=== PATIENT | male | born 1960 | race Caucasian/White ===

== ENCOUNTER 2020-06-11 13:57 | Outpatient (CLI) | payer BC, SELFPAY ==
--- NOTE | ~2020-06-11 | XR_ITS ---
EXAMINATION: XR hip RT min 2V DATE: 06/11/2020 14:13 INDICATION: Right hip pain. TECHNIQUE: 3 views of right hip were obtained. COMPARISON: None. FINDINGS: Bone alignment is normal. No fracture. There is moderate right hip osteoarthritis. IMPRESSION: 1. Moderate right hip osteoarthritis. Reviewed, dictated and finalized at location A. CUTTER
--- NOTE | ~2020-06-11 | XR_ITS ---
XR lumbar spine 2-3V 06/11/2020 14:13 Indication: Low back pain Procedure: 3 views lumbar spine Comparison: No prior studies for comparison. Findings: Vertebral body heights are maintained. No fracture or traumatic malalignment. No evidence f or spondylolysis or spondylolisthesis. There is moderate facet hypertrophy at L4-5 and L5-S1. There i s atherosclerosis. Impression: 1: Mild-moderate facet hypertrophy at L4-5 and L5-S1. Reviewed, dictated and finalized at location A. KEEPING ASSISTANT Impression: 1: Mild-moderate facet hypertrophy at L4-5 and L5-S1.
--- NOTE | ~2020-06-11 | XR_ITS ---
EXAMINATION: XR shoulder RT min 2V DATE: 06/11/2020 14:13 INDICATION: Right shoulder pain. TECHNIQUE: 4 views of right shoulder were obtained. COMPARISON: None. FINDINGS: Bone alignment is normal. No fracture. There is mild osteoarthritis of glenohumeral joint a nd acromioclavicular joint. IMPRESSION: 1. Mild polyarticular osteoarthritis. Reviewed, dictated and finalized at location A. HERMAL OPERATIONS ENGINEER
[2020-06-11 15:04] LABS: Basophils Percent Auto 0.6 % (0.2-1.2); Eosinophils Absolute Auto 0.1 K/mm3 (0-0.3); Eosinophils Percent Auto 1.7 % (0-4.4); Hemoglobin 13.1 g/dL (14.0-18.0); Immature Granulocyte Absolute 0.02 K/mm3 (0.00-0.031); Immature Granulocyte Percent A 0.6 % (0-0.5); Lymphocytes Absolute Auto 0.72 K/mm3 (0.9-3.2); Mean Corpuscular HGB Conc 35.4 g/dl (32-36); Mean Corpuscular Hemoglobin 33.3 pg (26-34); Mean Corpuscular Volume 94.1 fl (80-100); Mean Platelet Volume 9.5 fl (7.4-10.4); Monocytes Absolute Auto 0.3 K/mm3 (0.1-0.6); Monocytes Percent Auto 9.3 % (2.6-8.5); Neutrophils Absolute Auto 2.3 K/mm3 (1.3-6.7); Neutrophils Percent Auto 66.8 % (45.5-73.1); Platelet Count Result 137 k/mm3 (150-375); Red Blood Count 3.93 M/mm3 (4.6-6.20); Red Cell Distribution Width 12.5 % (11.5-14.5); White Blood Count 3.4 K/mm3 (4.5-10.0)
== END 2020-06-11 13:58 | disposition home or self-care (01) ==
PROVIDERS: PCP Family Medicine; Visit Provider Nurse Practitioner Family
DX: C85.80 Other specified types of non-Hodgkin lymphoma, unspecified site (principal); M54.5 Low back pain; M16.11 Unilateral primary osteoarthritis, right hip; M19.011 Primary osteoarthritis, right shoulder
CPT/HCPCS: 36415; 72100; 73030; 73502; 85025

== ENCOUNTER → 2020-09-04 12:11 | Outpatient (CLI) | payer BC, SELFPAY ==
--- NOTE | ~2020-09-04 | MR_ITS ---
EXAMINATION: MR cervical spine wo con EXAM DATE: 09/04/2020 12:59 INDICATION: Neck pain, right shoulder and arm pain. Cervical radiculopathy. TECHNIQUE: Multi-sequential, multiplanar MR images of the cervical spine were obtained without contra st. Axial T2, axial T2 MERGE sequence. Sagittal T1, T2, T2 fat saturation images also obtained. Th ere is no prior study for comparison. FINDINGS: There is moderate loss of the C5-6 disc height, mild disc disease at C4-5 and C6-7. The ve rtebral bodies are aligned in the AP dimension. The spinal cord signal intensity and intrinsic morpho logy is normal. Cervicomedullary junction is normal in appearance. There are no suspicious marrow s ignal abnormalities. Paraspinal soft tissue is unremarkable. Level by level evaluation: C2-C3: Disc does not extend beyond the endplate margin. Uncovertebral joint arthropathy: None. Facet joint arthropathy: Mild bilateral. Neural foraminal stenosis: No stenosis. Central canal stenosis: No stenosis. C3-C4: Disc does not extend beyond the endplate margin. Uncovertebral joint arthropathy: Mild bilateral. Facet joint arthropathy: Moderate left, mild to moderate right. Neural foraminal stenosis: Mild to moderate right, mild left. Central canal stenosis: No stenosis. C4-C5: There is a mild diffuse disc bulge. Uncovertebral joint arthropathy: Mild bilateral. Facet joint arthropathy: Moderate right, mild left. Neural foraminal stenosis: Mild right. Central canal stenosis: Minimal. C5-C6: There is a mild diffuse disc bulge. Uncovertebral joint arthropathy: Moderate right, mild left. Facet joint arthropathy: Mild to moderate bilateral. Neural foraminal stenosis: Severe right, mild to moderate left. Central canal stenosis: Mild. C6-C7: There is a mild diffuse disc bulge. Uncovertebral joint arthropathy: Mild to moderate bilateral. Facet joint arthropathy: Mild bilateral. Neural foraminal stenosis: No stenosis. Central canal stenosis: No stenosis. C7-T1: Disc does not extend beyond the endplate margin. Uncovertebral joint arthropathy: Mild right. Facet joint arthropathy: Mild to moderate right, mild left. Neural foraminal stenosis: Mild right. Central canal stenosis: No stenosis. IMPRESSION: 1. C5-6 severe right neural foraminal stenosis. 2. Otherwise overall mild to moderate mid cervical spondylosis. Reviewed, dictated and finalized at location B. OPERATOR
== END ==
PROVIDERS: PCP Family Medicine; Visit Provider Nurse Practitioner Adult Health
DX: M47.22 Other spondylosis with radiculopathy, cervical region (principal)
CPT/HCPCS: 72141

== ENCOUNTER 2020-11-08 13:36 | Outpatient (CLI) | payer BC, SELFPAY ==
--- NOTE | 2020-11-08 13:52 | ECHO_ITS ---
Patient Info Name: Wild Breaux Age: 60 years : 1960 Gender: Male Ht: 74 in Wt: 236 lbs BSA: 2.39 m2 HR: 60 bpm BP: 136 / 82 mmHg Technical Quality: Good Exam Date: 11/08/2020 2:08 PM Exam Location: [facility] Pulmonary Patient Status: Outpatient Admit Date: 11/08/2020 Staff Ordering Physician: Israel Shahid DO Centrifugal Supervisor: Caitlyn Rossi RCS Attending Provider: Israel Shahid DO Exam Type: CA echo doppler color flow Study Info Indications - chest pain Complete two-dimensional, color flow and Doppler transthoracic echocardiogram is performed. Summary 1. Complete two-dimensional, color flow and Doppler transthoracic echocardiogram is performed. 2. Left ventricular chamber dimension is normal. 3. Left ventricular systolic function is normal, estimated at 55-60%. 4. There is mildly increased left ventricular wall thickness. 5. The left ventricular diastolic function is grade I diastolic dysfunction. 6. E/e' 11 is mildly elevated. 7. Global longitudinal strain is abnormal at -15.0%. 8. There is trace mitral valve regurgitation. 9. No pulmonary hypertension, estimated pulmonary arterial systolic pressure is 28 mmHg. 10. There is trace tricuspid valve regurgitation. 11. There is trace pulmonic regurgitation. Left Ventricle E/e' 11 is mildly elevated. Global longitudinal strain is abnormal at -15.0%. Left ventricular chamber dimension is normal. Left ventricular systolic function is normal, estimated at 55-60%. There is mildly increased left ventricular wall thickness. The left ventricular diastolic function is grade I diastolic dysfunction. Right Ventricle Right ventricular chamber dimension is normal. Right ventricular systolic function is normal. Left Atria Left atrial chamber dimension is normal. Right Atria Right atrial chamber dimension is normal. Aortic Valve The aortic valve is trileaflet. There is no aortic valve stenosis. There is no aortic valve regurgitation. Pulmonic Valve There is trace pulmonic regurgitation. Mitral Valve There is no mitral valve stenosis. There is trace mitral valve regurgitation. Tricuspid Valve There is trace tricuspid valve regurgitation. No pulmonary hypertension, estimated pulmonary arterial systolic pressure is 28 mmHg. Pericardium/Pleural There is no pericardial effusion. Inferior Vena Cava Normal inferior vena cava with >50% collapse upon inspiration consistent with normal right atrial pressure, 5 mmHg. Aorta The aortic root size at the sinus of Valsalva is normal. Left Ventricular Outflow Tract Name Value Normal LVOT 2D LVOT Diameter 2.2 cm LVOT Doppler LVOT Peak Gradient 4 mmHg LVOT Mean Gradient 2 mmHg LVOT VTI 22 cm LVOT VTI/AV VTI Ratio 1.1 LVOT Stroke Volume 85 ml LVOT CO 16.3 l/min LVOT CI 6.8 l/min/m2 Pulmonic Valve Nam
== END 2020-11-08 13:37 | disposition home or self-care (01) ==
LOC: ANHCARD 13:37
PROVIDERS: PCP Family Medicine; Visit Provider Internal Medicine Cardiovascular Disease
DX: R07.9 Chest pain, unspecified (principal)
CPT/HCPCS: 93306

== ENCOUNTER 2024-09-05 00:52 | Day surgery (SDC) | payer BC, SELFPAY ==
[2024-08-30 10:14] VITALS: BMI 31.1
--- OUTSIDE RECORDS SUMMARY | 2024-09-05 00:58 | XMS_ITS | Referral Summary ---
Author Organization [facility] [employer] Address [address] [place] [address] Care Team Providers Care Counter Clerk Tractor Parts Name Role Phone Marc Cam MD Primary Care Provider [phone] Source Comments [facility] [employer],non-owned Affiliates and Associated Physician Practices is amultiple site organization consisting of ambulatory clinics and hospital sitesin [place], [place], [place] and [place]. This disclosure is being madepursuant to the Care Everywhere program and may not contain all information available regarding this patient. Last updated 18.[facility] [employer] Allergies No known active allergies Medications * Be aware that medications may not be up to date on this document. Alwaysverify current medications with the patient. Medication Sig Dispensed Refills Start Date End Date Status pravastatin (PRAVACHOL) 40 MG tablet Take 40 mg by mouth. 02/05/2016 Active Fiber Take 1 capsule by mouth DAILY. 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 Social History Tobacco Use Types Packs/Day Years Used Date Smoking Tobacco: Never Smokeless Tobacco: Never Alcohol Use Standard Drinks/Week Comments Yes 0 (1 standard drink = 0.6 oz pur e alcohol) Sex and Gender Information Value Date Recorded Sex Assigned at Not on file Gender Identity Not on file Sexual Orientation Not on file Last Filed Vital Signs Vital Sign Reading Time Taken Comments Blood Pressure 124/94 09/21/2018 9:25 AM CDT Pulse 70 09/21/2018 9:23 AM CDT Temperature 36.6 C (97.8 F) 09/21/2018 9:23 AM CDT Respiratory Rate 18 09/21/2018 9:23 AM CDT Oxygen Saturation 100% 09/21/2018 9:23 AM CDT Inhaled Oxygen Concentration - - Weight 112.9 kg (249 lb) 09/21/2018 9:23 AM CDT Height - - Body Mass Index - - Plan of Treatment Upcoming Encounters Date Type Department Care Team (Late st Contact Info) Description 03/02/2025 8:00 AM CDT Appointment [facility] [address] [place] [id number] Keagan Avila, DO [address] [address] Care Teams Counter Clerk Tractor Parts Relationship Specialty Start Date End Date Marc Cam MD [address] [place] [id number] PCP - General 09/02/16
--- OUTSIDE RECORDS SUMMARY | 2024-09-05 00:58 | XMS_ITS | Continuity of Care Document ---
Author Organization [facility] Address [address] [place] [address] Phone Care Team Providers Care Crown Wheel Assembler Name Role Phone Vero Singer MD Unavailable Unavailable Allergies, Adverse Reactions, Alerts Substance Reaction Status Criticality No Known Drug Allergies Other Active No I nformation Medications Medication Instructions Dosage Effective Dates (start - stop) Status Comments pravastatin 40 mg tablet take 1 tablet by oral route every day 40 MG - Active Ativan 1 mg tablet take 1 tablet by oral route 30 min before MRI and then another dose when starting MRI - Active CITALOPRAM 20MG TABLETS TAKE 1 TABLET BY MOUTH EVERY DAY - Active Clarinex-D 12 HOUR 2.5 mg-120 mg tablet,extended release take 1 tablet by oral route 2 times every day 1.00 tablet - Active fax to [phone] Flonase 50 mcg/actuation nasal spray,suspension spray 1 by intranasal route 2 times every day in each nostril as needed - Active Multiple Vitamins Daily tablet take 1 tablet by oral route every day with food - Active C-500 500 mg chewable tablet chew 1 tablet by mouth daily - Active Vitamin B-12 ER 1,000 mcg tablet,extended release take 1 tablet by oral route daily - Active Tylenol 325 mg tablet take 2 Tablet by oral route every 4 hours as needed 650 MG - Active pravastatin 40 mg tablet take 1 tablet by oral route every day 40 MG - No Longer Active Advance Directives Directive Yes / No Effective Date File Name No Information Encounters Encounter Description Practice Location Reason(s) For Visit Diagnoses Date Provider Providers Copied on Encounter [facility], [address], [place], [place], [id number] , tel: [phone] [place] No Information 6 Enmanuel Pham. [address] [place] [address], [facility], . tel:[phone] [facility], [address], [place], [place], [address] , tel: [phone] [place] New onset of headachesHistory of lymphomaOther and unspecified hyperlipidemiaEncoun ter for long-term (current) use of other medications 6 Enmanuel Pham. [facility] [address], [facility], . tel:[phone] Referring Provider: Vero Singer, [facility] [address], [facility]. tel:[phone] [facility], [address], [place], [place], [address] , tel: [phone] [place] Other and unspecified hyperlipidemiaEncoun ter for long-term (current) use of other medicationsElevated alanine aminotransferase (ALT) level 6 Enmanuel Pham. [facility] [address], [facility], . tel:[phone] [facility], [address], [place], [place], [address] , tel: [phone] [place] No Information 6 Carmen Dhaliwal. [address] [place] [address], [id number], [place]. tel:[phone] [facility], [address], [place], [place], [address] , tel: [phone] [place] Other abnormal glucoseAcute stress reactionOther and unspecified hyperlipidemiaEncoun ter for general adult medical examination without abnormal findingsPersonal history of malignant lymphomaErysipelas 6 Carmen Dhaliwal. [address] [place], [place], [address], [place]. tel:[phone] Referring Provider: Isra Rosas, [address] [place], [address] . tel:[phone] [facility], [address], [place], [place], [address] , [place] tel: [phone] [place] PrediabetesEncounter for laboratory examinationOther and unspecified hyperlipidemiaEncoun ter for long-term (current) use of other medicationsScreening for prostate cancer 6 Carmen Dhaliwal. [address] [place], [place], [address], [place]. tel:[phone] [facility], [address], [place], [place], [address] , [place] tel: [phone] Joan No Information 6 Marixa Watson. [address] [place], [place], [address]. tel:[phone] [facility], [address], [place], [place], [address] , [place] tel: [phone] [place] Lymphoma malignant, large cellStress reaction, mixed disordersPrediabetes HYPERLIPIDEMIA NEC/NOS 5 Carmen Dhaliwal. [address] [place], [place], [address], [place]. tel:[phone] Referring Provider: Isra Rosas, [address] [place], [address] . tel:[phone] [facility], [address], [place], [place], [address] , [place] tel: [phone] [place] Prediabetes 4 Carmen Dhaliwal. [address] [place], [place], [address], [place]. tel:[phone] Referring Provider: Isra Rosas, [address] [place], [address] . tel:[phone] [facility], [address], [place], [place], [address] , tel: [phone] [place] No Information Jonas-2 4-201 4 Carmen Isra. [address] [place], [place], [address], [place]. tel:[phone] Referring Provider: Isra Rosas, [address] [place], [address] . tel:[phone] [facility], [address], [place], [place], [address] , tel: [phone] [place] Lymphoma malignant, large cell Mar-2 0-201 4 Carmen Dhaliwal. [address] [place], [place], [address], [place]. tel:[phone] Referring Provider: Isra Rosas, [address] [place], [address] . tel:[phone] [facility], [address], [place], [place], [address] , tel: [phone] Thornton No Information Aug-1 8-201 4 Carmen Dhaliwal. [address] [place], [place], [address], [place]. tel:[phone] [facility], [address], [place], [place], [address] , tel: [phone] Thornton No Information Aug-1 0-201 4 Carmen Dhaliwal. [address] [place], [address], [place]. tel:[phone] [facility], [address], [place], [place], [address] , [place] tel:[phone] Thornton No Information Feb-2 4-201 4 Lauren Beltrán. [address] [place], [address], [place]. tel:[phone] [facility], [address], [place], [place], [address] , tel:[phone] [place] No Information Oct-0 6-201 3 Carmen Dhaliwal. [address] [place], [place], [address], [place]. tel:[phone] [facility], [address], [place], [place], [address] , tel: [phone] [place] Stress reaction, mixed disorders 3 Carmen Dhaliwal. [address] [place], [address], . tel:[phone] Referring Provider: Isra Rosas, [address] [place], [address] . tel:[phone] [facility], [address], [place], [place], [address] , tel: [phone] [place] FibromyalgiaEsophage al reflux 3 Lauren Beltrán. [address] [place], [address], . tel:[phone] Referring Provider: Isra Rosas, [address] [place], [address] . tel:[phone] [facility], [address], [place], [place], [address] , tel: [phone] [place] HYPERLIPIDEMIA NEC/NOS 1 Carmen Dhaliwal. [address] [place], [place], [address], . tel:[phone] [facility], [address], [place], [place], [address] , tel: [phone] Joan No Information 9 Carmen Dhaliwal. [address] [place], [place], [address], . tel:[phone] [facility], [address], [place], [place], [address] , tel: [phone] [place] OBSTRUCTIVE SLEEP APNEAACUTE STRESS REACT NEC 0200 7 Carmen Dhaliwal. [address] [place], [place], [address], . tel:[phone] Family History Family Member Type Diagnosis Age At Onset Brother Problem (finding) alcoholism Father Problem (finding) cancer of the esophagus Sister Problem (finding) Allergies Brother Problem (finding) Allergies Father Problem (finding) Cancer - layrnx Immunizations Vaccine Date Status Comments Influenza, injectable, quadrivalent, preservative free, 3 yrs or older administered Source: New Immuniz ation Record flu (split) (3 yrs or older) administered Source: Other Provider 95307 - Influenza administered Source: So urce Unspecified 34343 - Influenza administered Source: So urce Unspecified 90663 - TD administered Source: Source Unspecified Payers Payer name Insurance type Covered republican ID Authoriza tion(s) [facility] [id number] [facility] [id number] Social History Type Description Quantity Date Captured Comments Alcohol Use Details Unknown Caffeine Use Details Unknown Tobacco Use Status No Information Smoking Status No Information Sex Male Chief Complaint And Reason For Visit No Information Reason For Referral Reason For Referral No Information History Of Present Illness Encounter Date Complaint History Of Prese nt Illness No Information Functional Status Date Functional Assessmen t No Information Instructions Date Instruction Additional Infor mation No Information Assessments Type Assessment Date No Information Patient Care Teams Name Effective Dates (start - stop) Status Members No Information
--- OUTSIDE RECORDS SUMMARY | 2024-09-05 00:58 | XMS_ITS | Clinical Summary ---
Author Organization [facility] Address [address] [facility] [address] [place] [address] Phone Care Team Providers Care Policy Value Calculator Name Role Phone Marc Cam MD Primary Care Provider Keagan Oliver MD Unavailable [phone] Keagan Avila DO Unavailable [phone] Allergies Active Allergy Reactions Criticality Noted Date Comments Mold Headache Low 11/05/2022 Medications citalopram (CeleXA) 10 mg tablet 07/23/2017Celexa, po solid 10 mg TabletPOdailyCurrent Medication 07/23/19 18 Active fluticasone (FLONASE) 50 mcg/actuation nasal spray 07/23/2017Fluticasone propionate, aero 44 mcg Aerosol with adapter (gram)Inhalation routeas directedinstill 1 spray in each nostril every day08/29/2013Continue 08/30/19 14 Active pravastatin (PRAVACHOL) 40 mg tablet 07/23/19 18 Active acetaminophen (TYLENOL) 325 mg tablet 07/23/2017Tylenol, po solid 325 mg TabletPOPRNCurrent Medication 07/23/19 18 Active ascorbic acid (VITAMIN C) 500 mg tablet,chewab le 07/23/2017Vitamin c, po solid 500 mg TabletPOdailyCurrent Medication 07/23/19 18 Active lansoprazole (PREVACID) 15 mg capsule Take 1 capsule (15 mg total) by mouth daily before breakfast Active multivit with min-folic acid (Adult One Daily Multivitamin) 0.4 mg tablet Take 1 tablet by mouth 3 (three) times a day with meals Active chhq-egq-cmb- zll-xtcz-jvkl -pec (Fiber 6) 1,000 mg tablet Take 1 capsule by mouth daily 02/05/20 16 Active atorvastatin (LIPITOR) 80 mg tablet Take 1 tablet (80 mg total) by mouth daily 02/29/20 21 Active Claritin-D 24 Hour 10-240 mg per 24 hr tablet Take 1 tablet by mouth daily 02/29/20 21 Active nitroglycerin (NITROSTAT) 0.4 mg SL tablet 03/23/20 22 Active traMADoL (ULTRAM) 50 mg tablet Take 1 tablet (50 mg total) by mouth 2 (two) times a day as needed for pain 12/21/19 24 Active Active Problems Problem Noted Date Diagnosed Date Diffuse large B-cell lymphom a of intra-abdominal lymph nodes 01/21/2018 Cancer Staging:Clinical stage from 11/21/2013:Stage III(Diffuse large B-cell lymphoma) - Signed by Keagan Avila DO on 01/21/2018 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 Immunizations Immunization Administration Dates Next Due Influenza, Quadrivalent, Spl it, Preservative Free, Intramuscular 06/14/2014 Revert.IO (J&J) SARS-CoV-2 Vaccination 12/03/2020 Surgical History Surgery Date Site/Laterality Comments FLUORO GUIDED ASPIRATION OR INJECTION LARGE JOINT BILATERAL 05/20/2022 Bilateral FLUORO GUIDED ASPIRATION OR INJECTION LARGE JOINT BILATERAL 12/22/2023 Bilateral Social History Tobacco Use Types Packs/Day Years Used Date Smoking Tobacco: Never Smokeless Tobacco: Never Personal Safety Answer Date Recorded Have you ever been in or are you currently in a harmful physical or emotional relationship or is someone making you feel afraid or unsafe? 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 Gender Identity Male 11/05/2022 8:53 AM CDT Sexual Orientation Not on file Obstetrics History Last Filed Vital Signs Vital Sign Reading Time Taken Comments Blood Pressure 120/82 03/10/2024 10:23 AM CDT Pulse 88 03/10/2024 10:23 AM CDT Temperature 36.7 C (98.1 F) 03/10/2024 10:23 AM CDT Respiratory Rate 18 03/10/2024 10:2 3 AM CDT Oxygen Saturation 96% 03/10/2024 10: 23 AM CDT Inhaled Oxygen Concentration - - Weight 112.2 kg (247 lb 5.7 oz) 024 10:23 AM CDT with shoes Height 186.7 cm (6' 1.5 ) 12/10/2023 2: 57 PM CDT Body Mass Index 32.19 12/10/2023 2:57 PM CDT Plan of Treatment Health Maintenance Due Date Last Done Comments Colon Cancer Screening-Colonoscopy 1960 Depression Screening 1960 Hepatitis C Screening 1960 Prostate Cancer Screening-PSA 1960 DTaP/Tdap/Td Vaccine (1 - Tdap) 1973 Hepatitis B Screening 1980 Regular Well Visit/Exam 18-64 1980 Pneumococcal vaccine <65 (1 of 2 - PCV) 1981 Zoster Vaccine (1 of 2) 1981 Covid-19 Vaccine (2 - Margaret risk series) 12/31/2020 12/03/2020 Influenza Vaccine (#1) 2024 06/14/2014 [place] Care Teams Policy Value Calculator Relationship Specialty Start Date End Date Marc Cam MD [address] [facility] [address] [place] [address] PCP - General Family Medicine 01/20/18 Keagan Oliver MD [address] [facility] [address] [place] [address] Referring Physician Radiation Oncology 01/20/18 Keagan Avila DO [address] [place] [address] MEDICAL ONCOLOGY, [facility] [address] [place] [address] Medical Oncologist/Legal Adviser Hematology and Oncology 03/07/21
--- OUTSIDE RECORDS SUMMARY | 2024-09-05 00:58 | XMS_ITS ---
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 Past Plans No past plan information found. Radiation Treatments * No radiation treatments are documented for this patient in [facility]. Treatments may have been administered in another system. Lifetime Dose Tracking * Chemical Lifetime Dose Automatic Entry Manual Entr y Dose Length Product 4,408 mGy-cm 4,408 mGy-cm 0 mGy-cm
--- OUTSIDE RECORDS SUMMARY | 2024-09-05 00:58 | XMS_ITS | Clinical Summary ---
Author Organization [facility] Address [address] [place] [address] Care Team Providers Care Heating And Ventilating Worker Name Role Phone Marc Cam MD Primary Care Provider Source Comments [facility],non-owned Affiliates and Associated Physician Practices is amultiple site organization consisting of ambulatory clinics and hospital sitesin [place], [place], [place] and [place]. This disclosure is being madepursuant to the Care Everywhere program and may not contain all information available regarding this patient. Last updated 18.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 d age 74; Status: None Known Mother Status: Alive None Known Sister 1 Status: Alive None Known Sister 2 Status: Alive Relation Name Status Comments Brother 1 Brother 2 Father Mother Sister 1 Sister 2 Social History Tobacco Use Types Packs/Day Years [...] Info) Description 03/02/2025 8:00 AM CDT Appointment [facility] [address] [place] [id number] Keagan Avila DO [address] [place] [id number] Health Maintenance Due Date Last Done Comments COLOGUARD (AGES 45-75) - COL ON CA SCREENING 1962 COLON MONITORING 1962 COLONOSCOPY - COLON CA SCREENING 1962 CT COLONOGRAPHY - COLON CA SCREENING 1962 Colorectal Cancer Screening 1962 FIT - COLON CA SCREENING 1962 FLEX SIG - COLON CA SCREENING 1962 HIV SCREENING 1977 HEPATITIS C SCREENING 08/27/1980 DTAP/TDAP/TD VACCINES (1 - Tdap) 1981 PNEUMOCOCCAL VACCINE 50+ (1 of 2 - PCV) 1981 PNEUMOCOCCAL VACCINE (1 of 2 - PCV) 1981 ZOSTER VACCINE (1 of 2) 1981 COVID-19 VACCINE (2 - Jansse n risk series) 12/31/2020 12/03/2020 Respiratory Syncytial Virus (RSV) Vaccine Pt: or over 60 yrs (1 - Risk 60-74 years 1-dose series) 2022 INFLUENZA VACCINE (#1) 2024 06/14/2014 DEPRESSION SCREENING 06/28/2024 HEPATITIS B VACCINE Aged Out No longe r eligible based on patient's age to complete this topic HIB VACCINE Aged Out No longer eligi ble based on patient's age to complete this topic HPV VACCINE Aged Out No longer eligi ble based on patient's age to complete this topic MENINGOCOCCAL (Group B) VACCINE Aged Out No longer eligible based on patient's age to complete this topic MENINGOCOCCAL VACCINE Aged Out No brandan turner eligible based on patient's age to complete this topic Care Teams Heating And Ventilating Worker Relationship Specialty Start Date End Date Marc Cam MD [address] [place] [address] PCP - General 09/02/16
--- OUTSIDE RECORDS SUMMARY | 2024-09-05 00:58 | XMS_ITS ---
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 Past Treatment and Therapy Plans No past plan information found. Lifetime Dose Tracking * Chemical Lifetime Dose Automatic Entry Manual Entr y Fluoro Time 1.2 minutes 1.2 minutes 0 minutes Air kerma at the reference point (Ka,r) 5.33 mGy 5 .33 mGy 0 mGy DLP 826 mGycm 826 mGycm 0 mGycm
--- OUTSIDE RECORDS SUMMARY | 2024-09-05 00:58 | XMS_ITS | Patient Health Summary ---
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 This disclosure is being madepursuant to the Care Everywhere program and may not contain all information available regarding this patient. Last updated 18.[facility] Allergies No known active allergies Medications * Be aware that medications may not be up to date on this document. Alwaysverify current medications with the patient. * pravastatin (PRAVACHOL) 40 MG tablet(Started 02/05/2016) Take 40 mg by mouth. * Fiber(Started 02/05/2016) Take 1 capsule by mouth DAILY. * citalopram (CELEXA) 10 MG tablet(Started 08/24/2018) * ascorbic acid (VITAMIN C) 500 MG tablet Take 500 mg by mouth once daily * multivitamin daily tablet Take 1 tablet by mouth daily with food * lansoprazole (PREVACID) 15 MG capsule Take 15 mg by mouth daily before breakfast Active Problems Problem Noted Date Diagnosed Date [...] - - Body Mass Index - - Procedures * CT ABDOMEN PELVIS W CONTRAST(Performed 03/03/2024) Performed for Diffuse large B-cell lymphoma of intra-abdominal lymph nodes (HCC) * CREATININE - POCT INTERFACED(Performed 03/03/2024) * CT ABDOMEN PELVIS W CONTRAST(Performed 02/26/2023) Performed for Diffuse large B-cell lymphoma of intra-abdominal lymph nodes (HCC) * CREATININE - POCT INTERFACED(Performed 02/26/2023) * CT CHEST ABDOMEN PELVIS W CONT(Performed 02/25/2022) Performed for Diffuse large B-cell lymphoma of intra-abdominal lymph nodes (HCC) * CREATININE - POCT INTERFACED(Performed 02/25/2022) * CT CHEST ABDOMEN PELVIS W CONT(Performed 03/04/2021) Performed for Diffuse large B-cell lymphoma of intra-abdominal lymph nodes (HCC) * CREATININE - POCT INTERFACED(Performed 03/04/2021) * CT CHEST ABDOMEN PELVIS W CONT(Performed 02/06/2019) Performed for Diffuse large B-cell lymphoma of intra-abdominal lymph nodes (HCC) * CREATININE BLOOD - POCT (IP) [facility](Performed 02/06/2019) Performed for Diffuse large B-cell lymphoma of intra-abdominal lymph nodes (HCC) * CT CHEST ABDOMEN PELVIS W CONT(Performed 07/18/2018) 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) * CREATININE BLOOD - POCT (IP) [facility](Performed 07/18/2018) 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) * CT CHEST ABDOMEN PELVIS W CONT(Performed 01/14/2018) 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) * CREATININE BLOOD - POCT (IP) [facility](Performed 01/14/2018) 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) * CT CHEST ABDOMEN PELVIS W CONT(Performed 07/06/2017) * CREATININE BLOOD - POCT (IP) [facility](Performed 07/06/2017) * CT CHEST ABDOMEN PELVIS W CONT(Performed 09/02/2016) * CREATININE BLOOD - POCT (IP) [facility](Performed 09/02/2016) * CT CHEST ABDOMEN PELVIS W CONT(Performed 02/03/2016) * CREATININE BLOOD - POCT (IP) [facility](Performed 02/03/2016) * CT ABDOMEN PELVIS W CONTRAST(Performed 11/05/2015) * CREATININE BLOOD - POCT (IP) [facility](Performed 11/05/2015) * CT ABDOMEN PELVIS W CONTRAST(Performed 08/05/2015) * CREATININE BLOOD - POCT (IP) [facility](Performed 08/05/2015) * CT ABDOMEN PELVIS W CONTRAST(Performed 04/02/2015) * PET CT SKULL TO MID THIGH(Performed 04/02/2015) * GLUCOSE - POINT OF CARE (AMB) [facility](Performed 04/02/2015) * GLUCOSE - POINT OF CARE (AMB) [facility](Performed 04/02/2015) * CREATININE BLOOD - POCT (IP) [facility](Performed 04/02/2015) * CT CHEST ABDOMEN PELVIS W CONT(Performed 01/01/2015) * PET CT WHOLE BODY(Performed 01/01/2015) * GLUCOSE - POINT OF CARE (AMB) [facility](Performed 01/01/2015) * GLUCOSE - POINT OF CARE (AMB) [facility](Performed 01/01/2015) * CREATININE BLOOD - POCT (IP) [facility](Performed 01/01/2015) * PET CT WHOLE BODY(Performed 10/02/2014) * CT ABDOMEN PELVIS W CONTRAST(Performed 10/02/2014) * GLUCOSE - POINT OF CARE (AMB) [facility](Performed 10/02/2014) * GLUCOSE - POINT OF CARE (AMB) [facility](Performed 10/02/2014) * CREATININE BLOOD - POCT (IP) [facility](Performed 10/02/2014) * CT ABDOMEN PELVIS W CONTRAST(Performed 08/06/2014) * CREATININE BLOOD - POCT (IP) [facility](Performed 08/06/2014) * PET CT WHOLE BODY(Performed 07/30/2014) * GLUCOSE - POINT OF CARE (AMB) [facility](Performed 07/30/2014) * GLUCOSE - POINT OF CARE (AMB) [facility](Performed 07/30/2014) * PET CT WHOLE BODY(Performed 05/29/2014) * GLUCOSE - POINT OF CARE (AMB) [facility](Performed 05/29/2014) * GLUCOSE - POINT OF CARE (AMB) [facility](Performed 05/29/2014) * CT RAD THERAPY WO CONTRAST(Performed 03/23/2014) * CYTOGENETICS CANCER PANEL(Performed 08/24/2013) Performed for Lymphoma [ICD-9-CM] Results * CT ABDOMEN PELVIS W CONTRAST (03/03/2024 10:05 AM CDT) Only the most recent of7 resultswithin the time period is included. Anatomical Region Laterality Modality Abdomen, Pelvis Computed Tomogra phy 03/03/2024 10:3 1 AM CDT Impressions 03/03/2024 11:14 AM CDT Impression: 1.No substantial change in size or appearance of peripherally calcified retroperitoneal lymph nodes consistent with previously treated lymphoma. 2.No evidence of metastatic disease in the abdomen or pelvis. 3.Cholelithiasis without cholecystitis. Report dictated by Jahaira Chávez MD I, Corrine Tripathi MD have personally reviewed and interpreted this examination/study. > Interpreting Provider: Corrine Tripathi MD on 03/03/2024 11:14 AM Narrative 03/03/2024 11:14 AM CDT PROCEDURE: CT ABDOMEN PELVIS W CONTRAST, DATE/TIME OF EXAM: 03/03/2024 10:06 AM, LOCATION [facility] INDICATION: C83.33: Diffuse large B-cell lymphoma of intra-abdominal lymph nodes (HCC) ADDITIONAL CLINICAL INFORMATION: Ordering Provider Reason For Exam: Diffuse large B-cell lymphoma of intra-abdominal lymph nodes (CMS/HCC) Technologist Note: Additional: COMPARISON: CT from 02/26/2023 TECHNIQUE: CT of the abdomen and pelvis was performed following the uneventful administration of 100 mL of Isovue 370 intravenous contrast according to standard protocol. Findings: Lower Chest: Coronary atherosclerosis. Liver: Mild diffuse heterogeneity of the liver consistent with hepatic parenchymal disease. Gallbladder and Bile Ducts: A gallstone is seen. No wall thickening or pericholecystic fluid. No biliary dilation seen. Spleen: Normal. Pancreas: Normal. Adrenals: Normal. Kidneys: Normal. Gastrointestinal: The stomach and visualized loops of small bowel are unremarkable. Colonic diverticulosis without evidence of diverticulitis is seen. Normal appendix. Mesentery/Peritoneum/Retroperitoneum: Unchanged multiple peripherally calcified retroperitoneal lymph nodes. For reference, unchanged 1.2 cm retroaortic lymph node (series 3 image 83). Bladder: Normal. Reproductive Organs: The prostate is normal. Vasculature: Atherosclerotic calcification of the aorta and its branch vessels. Bones: Bone windows demonstrate no suspicious lytic or blastic lesions. The visible osseous structures are intact. Degenerative changes are seen in the spine. Soft tissues: Normal. 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 Findings: Lower Chest: Coronary atherosclerosis. Liver: Mild diffuse heterogeneity of the liver consistent with hepaticparenchymal disease. Gallbladder and Bile Ducts: A gallstone is seen. No wall thickening or pericholecystic fluid. No biliary dilation seen. Spleen: Normal. Pancreas: Normal. Adrenals: Normal. Kidneys: Normal. Gastrointestinal: The stomach and visualized loops of small bowel are unremarkable.Colonic diverticulosis without evidence of diverticulitis is seen. Normalappendix. Mesentery/Peritoneum/Retroperitoneum: Unchanged multiple peripherally calcified retroperitoneal lymph nodes.For reference, unchanged 1.2 cm retroaortic lymph node (series 3 image 83). Bladder: Normal. Reproductive Organs: The prostate is normal. Vasculature: Atherosclerotic calcification of the aorta and its branch vessels. Bones: Bone windows demonstrate no suspicious lytic or blastic lesions. The visible osseous structures are intact. Degenerative changes are seen inthe spine. Soft tissues: Normal. Impression: 1.No substantial change in size or appearance of peripherally calcified retroperitoneal lymph nodes consistent with previously treated lymphoma. 2.No evidence of metastatic disease in the abdomen or pelvis. 3.Cholelithiasis without cholecystitis. Report dictated by Jahaira Chávez MD I, Corrine Tripathi MD have personally reviewed and interpreted this examination/study. > Interpreting Provider: Corrine Tripathi MD on 411:14 AM Keagan Avila DO CT ORDERABLES * CREATININE - POCT INTERFACED (03/03/2024 9:50 AM CDT) Only the most recent of4 resultswithin the time period is included. Creatinine POCT 0.77 0.30 - 1.30 mg/dL 03/03/2024 9:54 AM CDT [facility] eGFR >90 >=90 mL/min/1.7 3 m2 03/03/2024 9:54 AM CDT [facility] Blood BLOOD SPECIMEN / Unknown 03/03/2024 9:50 AM CDT 03/03/2024 9:54 AM CDT Provider Unknown LAB - POINT OF CARE ORDERABLES Performing Organization Address City/State/[facility] Co de Phone Number [address] [id number], [facility] [phone] * CT CHEST ABDOMEN PELVIS W CONT (02/25/2022 10:33 AM CDT) Only the most recent of9 resultswithin the time period is included. Anatomical Region Laterality Modality Chest, Abdomen, Pelvis Computed Tomography 02/25/2022 11:3 1 AM CDT Impressions 02/25/2022 2:52 PM CDT Impression: 1.No substantial change in size or appearance of peripherally calcified retroperitoneal lymph nodes consistent with previously treated lymphoma. 2.No new lymphadenopathy or evidence of metastatic disease in the chest, abdomen, or pelvis. 3.Mild diffuse hepatic steatosis with early sequela of fibrosis. > Dictated by Azar Palacios MD, PhD (vice president business & corporate development). I, FILIPPO CASSIDY MD have personally reviewed and interpreted this examination/study. > Interpreting Provider: FILIPPO CASSIDY MD on 02/25/2022 2:52 PM Narrative 02/25/2022 2:52 PM CDT PROCEDURE: CT CHEST ABDOMEN PELVIS W CONT, DATE/TIME OF EXAM: 02/25/2022 10:34 AM, LOCATION [facility] INDICATION: C83.33: Diffuse large B-cell lymphoma of intra-abdominal lymph nodes COMPARISON: None. TECHNIQUE: CT of the chest, abdomen, and pelvis was performed after the uneventful administration of 100 mL of Isovue 370 intravenous contrast according to standard protocol. Findings: Chest: Lower Neck and Axillae: Normal. Lungs: No pulmonary parenchymal or airway process is present. No suspicious pulmonary nodules are identified. No pleural fluid or pneumothorax is present. Heart and Pericardium: The cardiac chambers are normal in size. No pericardial fluid or thickening is present. Redemonstrated coronary artery calcifications. Mediastinum and Rosey: No mediastinal hemorrhage is present. No enlarged lymph nodes are present. Thoracic Vasculature: No vascular abnormality is present. Abdomen/pelvis: Liver: The liver is mildly hypoattenuating in comparison to the spleen, consistent with a component of hepatic steatosis. No surface nodularity is identified to suggest cirrhosis. No hepatic observations are present. Mild periportal space widening is noted, consistent with component of early fibrosis. Gallbladder and Bile Ducts: Cholelithiasis without evidence of acute cholecystitis is present. No intra or extra hepatic biliary dilatation is identified. Spleen: Normal. Pancreas: Normal. Adrenals: Normal. Kidneys: Normal. Gastrointestinal: The imaged esophagus and stomach are within normal limits. The large and small bowel are normal in course and caliber without evidence of wall thickening or obstruction. Colonic diverticulosis without evidence of acute diverticulitis is seen. Mild circumferential wall thickening of the sigmoid colon may represent sequela of chronic inflammation. Normal appendix. Mesentery/Peritoneum/Retroperitoneum: No free intraperitoneal air. No free fluid in the abdomen or pelvis. There is redemonstration of multiple peripherally calcified retroperitoneal lymph nodes. For reference a stable 1.6 cm short axis retroaortic node is again noted (series 3 image 120). These are stable in size and number and appearance in comparison to the prior examination. No new suspicious abdominopelvic lymphadenopathy is noted. Bladder: Normal. Reproductive Organs: The prostate is within normal limits. Abdominal Vasculature: Atherosclerotic calcification of the aorta and its branch vessels. Bones: Bone windows demonstrate no suspicious lytic or blastic lesions. The visible osseous structures are intact. Soft tissues: Normal. Procedure Note Filippo Cassidy MD - 02/25/2022 PROCEDURE: CT CHEST ABDOMEN PELVIS W CONT, DATE/TIME OF EXAM:02/25/2022 10:34 AM, LOCATION [facility] INDICATION: C83.33: Diffuse large B-cell lymphoma of intra-abdominal lymph nodes COMPARISON: None. TECHNIQUE: CT of the chest, abdomen, and pelvis was performed after the uneventful administration of 100 mL of Isovue 370 intravenous contrast according to standard protocol. Findings: Chest: Lower Neck and Axillae: Normal. Lungs: No pulmonary parenchymal or airway process is present. No suspicious pulmonary nodules are identified. No pleural fluid or pneumothorax is present. Heart and Pericardium: The cardiac chambers are normal in size. No pericardial fluid orthickening is present. Redemonstrated coronary artery calcifications. Mediastinum and Rosey: No mediastinal hemorrhage is present. No enlarged lymph nodes arepresent. Thoracic Vasculature: No vascular abnormality is present. Abdomen/pelvis: Liver: The liver is mildly hypoattenuating in comparison to the spleen,consistent with a component of hepatic steatosis. No surface nodularity isidentified to suggest cirrhosis. No hepatic observations are present. Mildperiportal space widening is noted, consistent with component of early fibrosis. Gallbladder and Bile Ducts: Cholelithiasis without evidence of acute cholecystitis is present. Nointra or extra hepatic biliary dilatation is identified. Spleen: Normal. Pancreas: Normal. Adrenals: Normal. Kidneys: Normal. Gastrointestinal: The imaged esophagus and stomach are within normal limits. The large and small bowel are normal in course and caliber without evidence of wall thickening or obstruction. Colonic diverticulosis without evidence ofacute diverticulitis is seen. Mild circumferential wall thickening of thesigmoid colon may represent sequela of chronic inflammation. Normal appendix. Mesentery/Peritoneum/Retroperitoneum: No free intraperitoneal air. No free fluid in the abdomen or pelvis. There is redemonstration of multiple peripherally calcifiedretroperitoneal lymph nodes. For reference a stable 1.6 cm short axis retroaortic nodeis again noted (series 3 image 120). These are stable in size and numberand appearance in comparison to the prior examination. No new suspicious abdominopelvic lymphadenopathy is noted. Bladder: Normal. Reproductive Organs: The prostate is within normal limits. Abdominal Vasculature: Atherosclerotic calcification of the aorta and its branch vessels. Bones: Bone windows demonstrate no suspicious lytic or blastic lesions. The visible osseous structures are intact. Soft tissues: Normal. Impression: 1.No substantial change in size or appearance of peripherally calcified retroperitoneal lymph nodes consistent with previously treated lymphoma. 2.No new lymphadenopathy or evidence of metastatic disease in the chest, abdomen, or pelvis. 3.Mild diffuse hepatic steatosis with early sequela of fibrosis. > Dictated by Azar Palacios MD, PhD (vice president business & corporate development). I, FILIPPO CASSIDY MD have personally reviewed and interpreted this examination/study. > Interpreting Provider: FILIPPO CASSIDY MD on 02/25/2022 2:52 PM Keagan Avila DO CT ORDERABLES * CREATININE BLOOD - POCT (IP) [facility] (02/06/2019 9:36 AM CDT) Only the most recent of12 resultswithin the time period is included. Creatinine POCT 0.78 0.3 - 1.3 mg/dL [facility] POCT TESTING eGFR POCT 60 60 ml/min [facility] POCT TESTING Blood BLOOD SPECIMEN / Unknown 02/06/2019 9:36 AM CDT Keagan Avila DO LAB - POINT OF CARE ORDERABLES [facility] POCT TESTING [address] [phone] * PET CT SKULL TO MID THIGH (04/02/2015 8:57 AM CDT) Anatomical Region Laterality Modality Head, Lower Extremity Other Impressions 04/02/2015 3:26 PM CDT IMPRESSION: 1. Stable size with slightly decreased metabolic activity in the left para- aortic node and retroperitoneal lymph nodes. Findings suggest minimal response to therapy. Continued followup is recommended. 2. No new FDG avid lesions. This report was approved by Rosalia Wallace on 04/02/2015 11:46 AM . I, Dr. SHANNON CHAVIS D.O. have personally reviewed and interpreted this examination/study. This report was electronically signed by SHANNON CHAVIS D.O. on 04/02/2015 3:26 PM . Narrative 04/02/2015 3:26 PM CDT Procedure: PET/CT Study. Referring Physician: Keagan Oliver HISTORY: 54 years old male with history of diffuse large B cell lymphoma diagnosed on 07/2013 with an enlarged soft tissue mass in the para-aortic region as well as lymphadenopathy in the retroperitoneum and close to the distal esophagus. Evaluate for subsequent treatment strategy. TECHNIQUE: 13.3 mCi of F-18 FDG was injected intravenously in the right antecubital fossa. PET/CT images were acquired from top of the head to the upper thighs after approximately 60 minutes post-injection with the CT being low-dose, non- contrast. No separate report for the CT was generated as it was of non-diagnostic quality and was used for anatomic localization and attenuation correction only. Blood glucose level at the time of injection was 115 mg/dl. FINDINGS: Comparison made to prior study dated 01/01/2015. HEAD AND NECK: Brain demonstrates physiologic FDG uptake. There is no hypermetabolic cervical lymphadenopathy is identified. No abnormal FDG focus is present in the neck. CHEST: There is left sided central venous port terminates in the superior vena cava. There is no hypermetabolic pulmonary nodules identified. No hypermetabolic mediastinal or hilar lymphadenopathy is noted. No pleural or pericardial effusion is identified. Bibasilar atelectatic changes, unchanged. Subcentimeter right paraesophageal lymph node with no significant FDG uptake. ABDOMEN AND PELVIS: There is a relatively stable size and less metabolic activity of left para-aortic node measures up to 2.3 cm in diameter with SUV max 5.1 (previously 6.0). There is stable size without significant metabolic activity of the retroperitoneal lymph nodes measuring approximately 3 x 2 cm in diameter with SUV max 2.4, previously 2.4. Other subcentimeter mesenteric and retroperitoneal lymph nodes are noted with no significant FDG uptake. The liver, spleen, pancreas, and kidneys appear grossly unremarkable. Redemonstration of hyperdense gallstone with no significant wall thickening. Heterogenous FDG bowel uptake likely inflammatory. For reference, SUV max of liver is 2.8, previously 2.4. There is subcentimeter right inguinal lymph node with SUV Max 1.7. Musculoskeletal: No abnormal FDG focus is present. Mild degenerative changes are noted throughout the spine. Procedure Note Shannon Chavis, DO - 09/25/2017 Procedure: PET/CT Study. Referring Physician: Keagan Oliver HISTORY: 54 years old male with history of diffuse large B cell lymphomadiagnosed on 07/2013 with an enlarged soft tissue mass in the para-aorticregion as well as lymphadenopathy in the retroperitoneum and close to thedistal esophagus. Evaluate for subsequent treatment strategy. TECHNIQUE: 13.3 mCi of F-18 FDG was injected intravenously in the rightantecubital fossa. PET/CT images were acquired from top of the head to theupper thighs after approximately 60 minutes post-injection with the CTbeing low-dose, non-contrast. No separate report for the CT was generated as it was of non-diagnosticquality and was used for anatomic localization and attenuation correctiononly. Blood glucose level at the time of injection was 115 mg/dl. FINDINGS: Comparison made to prior study dated 01/01/2015. HEAD AND NECK: Brain demonstrates physiologic FDG uptake. There is nohypermetabolic cervical lymphadenopathy is identified. No abnormal FDGfocus is present in the neck. CHEST: There is left sided central venous port terminates in the superiorvena cava. There is no hypermetabolic pulmonary nodules identified. Nohypermetabolic mediastinal or hilar lymphadenopathy is noted. No pleuralor pericardial effusion is identified. Bibasilar atelectatic changes, unchanged. Subcentimeter rightparaesophageal lymph node with no significant FDG uptake. ABDOMEN AND PELVIS: There is a relatively stable size and less metabolicactivity of left para-aortic node measures up to 2.3 cm in diameter withSUV max 5.1 (previously 6.0). There is stable size without significantmetabolic activity of the retroperitoneal lymph nodes measuring approximately 3 x 2 cm in diameterwith SUV max 2.4, previously 2.4. Other subcentimeter mesenteric andretroperitoneal lymph nodes are noted with no significant FDG uptake. Theliver, spleen, pancreas, and kidneys appear grossly unremarkable. Redemonstration of hyperdense gallstone with no significant wallthickening. Heterogenous FDG bowel uptake likely inflammatory. Forreference, SUV max of liver is 2.8, previously 2.4. There is subcentimeterright inguinal lymph node with SUV Max 1.7. Musculoskeletal: No abnormal FDG focus is present. Mild degenerativechanges are noted throughout the spine. IMPRESSION IMPRESSION: 1. Stable size with slightly decreased metabolic activity in the leftpara-aortic node and retroperitoneal lymph nodes. Findings suggest minimalresponse to therapy. Continued followup is recommended. 2. No new FDG avid lesions. This report was approved by Rosalia Wallace on 04/02/2015 11:46 AM . I, Dr. SHANNON CHAVIS D.O. have personally reviewed and interpreted thisexamination/study. This report was electronically signed by SHANNON CHAVIS D.O. on 04/02/20153:26 PM . Keagan Oliver MD [place] ORDERABLES * GLUCOSE - POINT OF CARE (AMB) [facility] (04/02/2015 7:22 AM CDT) Only the most recent of10 resultswithin the time period is included. Glucose POCT 115 mg/dL [facility] Capillary blood specimen (specimen) 04/02/2015 7:22 AM CDT Shannon Chavis DO LAB - POINT OF CARE ORDERABLES [facility] * PET CT WHOLE BODY (01/01/2015 9:25 AM CDT) Only the most recent of4 resultswithin the time period is included. Anatomical Region Laterality Modality Other Impressions 01/01/2015 12:52 PM CDT IMPRESSION: 1. Stable size and metabolic activity in the left para-aortic nodule and retroperitoneal lymph nodes. Findings suggest stable disease. Continued followup is recommended. 2. No new FDG avid lesions. This report was approved by Anabella Lopez M.D on 01/01/2015 12:15 PM . I, Dr. SHANNON CHAVIS D.O. have personally reviewed and interpreted this examination/study. This report was electronically signed by SHANNON CHAVIS D.O. on 01/01/2015 12:52 PM . Narrative 01/01/2015 12:52 PM CDT Procedure: PET/CT Study. Referring Physician: HISTORY: 54 years old and male with history of diffuse large B cell lymphoma diagnosed in July 2013 from a large soft tissue mass in the para-aortic region as well as lymphadenopathy in the retroperitoneal and close to the distal esophagus. Patient is status post 6 cycles of chemotherapy ended on 11/14/13 and radiotherapy ended on 04/16/14. Prior PET/CT dated 10/02/2014 demonstrated stable size with decreased FDG activity in the left para-aortic and retroperitoneal lymph nodes may represent partial treatment response, no new FDG avid lesions. Evaluate for subsequent treatment strategy. TECHNIQUE: 12.34 mCi of F-18 FDG was injected intravenously in the right antecubital fossa. PET/CT images were acquired from top of the head to the feet after approximately 60 minutes post-injection with the CT being low-dose, non-contrast. No separate report for the CT was generated as it was of non-diagnostic quality and was used for anatomic localization and attenuation correction only. Blood glucose level at the time of injection was 104 mg/dl. FINDINGS: Comparison made to prior study dated 10/02/2014. Head and neck: Brain demonstrates physiologic FDG uptake. There is no hypermetabolic cervical lymphadenopathy is identified. No abnormal FDG focus is present in the neck. Chest: There is redemonstration of left central venous port terminates in the superior vena cava. There is no hypermetabolic pulmonary nodules is identified. No hypermetabolic mediastinal or hilar lymphadenopathy is noted. No pleural or pericardial effusion is identified. Bibasilar atelectatic changes, unchanged. Subcentimeter right paraesophageal lymph node with no significant FDG uptake. Abdomen and pelvis: There is a relatively stable size and metabolic activity of left para-aortic nodule measures up to 2.3 cm in diameter with SUV max 6.0, previously 6.9. There is stable size and metabolic activity of the retroperitoneal lymph nodes measuring approximately 3 x 2 cm in diameter with SUV max 2.4, previously 2.5. Other subcentimeter mesenteric and retroperitoneal lymph nodes are noted with no significant FDG uptake. The liver, spleen, pancreas, and kidneys appear grossly unremarkable. Redemonstration of hyperdense gallstone with no significant wall thickening. Heterogenous FDG bowel uptake likely inflammatory. For reference, SUVmax of liver is 2.4, previously 2.7. Musculoskeletal: No abnormal FDG focus is present. Mild degenerative changes are noted throughout the spine. Procedure Note Shannon Chavis, DO - 09/25/2017 Procedure: PET/CT Study. 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 Patient is status post 6 cycles of chemotherapy ended on 11/14/13 and radiotherapyended on 04/16/14. Prior PET/CT dated 10/02/2014 demonstrated stable sizewith decreased FDG activity in the left para-aortic and retroperitoneallymph nodes may represent partial treatment response, no new FDG avid lesions. Evaluate for subsequenttreatment strategy. TECHNIQUE: 12.34 mCi of F-18 FDG was injected intravenously in the rightantecubital fossa. PET/CT images were acquired from top of the head to thefeet after approximately 60 minutes post-injection with the CT beinglow-dose, non-contrast. No separate report for the CT was generated as it was of non-diagnostic quality andwas used for anatomic localization and attenuation correction only. Bloodglucose level at the time of injection was 104 mg/dl. FINDINGS: Comparison made to prior study dated 10/02/2014. Head and neck: Brain demonstrates physiologic FDG uptake. There is nohypermetabolic cervical lymphadenopathy is identified. No abnormal FDGfocus is present in the neck. Chest: There is redemonstration of left central venous port terminates inthe superior vena cava. There is no hypermetabolic pulmonary nodules isidentified. No hypermetabolic mediastinal or hilar lymphadenopathy isnoted. No pleural or pericardial effusion is identified. Bibasilar atelectatic changes, unchanged.Subcentimeter right paraesophageal lymph node with no significant FDGuptake. Abdomen and pelvis: There is a relatively stable size and metabolicactivity of left para-aortic nodule measures up to 2.3 cm in diameter withSUV max 6.0, previously 6.9. There is stable size and metabolic activityof the retroperitoneal lymph nodes measuring approximately 3 x 2 cm in diameter with SUV max 2.4, previously2.5. Other subcentimeter mesenteric and retroperitoneal lymph nodes arenoted with no significant FDG uptake. The liver, spleen, pancreas, andkidneys appear grossly unremarkable. Redemonstration of hyperdense gallstone with no significant wallthickening. Heterogenous FDG bowel uptake likely inflammatory. Forreference, SUVmax of liver is 2.4, previously 2.7. Musculoskeletal: No abnormal FDG focus is present. Mild degenerativechanges are noted throughout the spine. IMPRESSION IMPRESSION: 1. Stable size and metabolic activity in the left para-aortic nodule andretroperitoneal lymph nodes. Findings suggest stable disease. Continuedfollowup is recommended. 2. No new FDG avid lesions. This report was approved by Anabella Lopez M.D on 01/01/2015 12:[address] SHANNON Huggins D.O. have personally reviewed and interpreted thisexamination/study. This report was electronically signed by SHANNON CHAVIS D.O. on 01/01/201512:52 PM . Keagan Oliver MD NM ORDERABLES * CT RAD THERAPY WO CONTRAST (03/23/2014 11:37 AM CDT) Anatomical Region Laterality Modality Other Impressions 03/23/2014 12:50 PM CDT IMPRESSION: Radiation treatment protocol exam with noncontrast technique. Retroperitoneal adenopathy, largest one measuring 2.2 x 2.4 cm in the left periaortic region, slightly decreased in size, consistent with the patient's known lymphoma. No significant change subcentimeter mesenteric lymphadenopathy and mesenteric fat stranding. This report has been dictated by Jeri Maldonado M.D. (Resident). Dr. Linda Huggins M.D. have personally reviewed and interpreted this examination/study. This report was electronically signed by Linda SALAZAR M.D. on 03/23/2014 12:50 PM . Narrative 03/23/2014 12:50 PM CDT EXAMINATION: Computed tomography (CT) of the abdomen without contrast HISTORY: Lymphoma TECHNIQUE: CT of the abdomen was performed without the administration of intravenous contrast for radiation treatment planning. COMPARISON: Comparison is made to outside CT of the abdomen pelvis dated 02/02/2014 and 10/25/2013. FINDINGS: Abdomen: Evaluation of abdominopelvic organs and vascular structures is limited due to lack of intravenous contrast. The liver appears normal and limits of a noncontrast examination. A 7 mm gallstone is identified, without gallbladder wall thickening or pericholecystic fluid. The intrahepatic and extrahepatic bile ducts are nondilated. The spleen and adrenal glands appear normal. The pancreas is mildly atrophic. The kidneys appear normal without evidence of renal calculi or hydronephrosis. The stomach and visualized small and large bowel are normal in caliber without evidence of wall thickening or obstruction. No free air or free fluid is identified within the abdomen. There are several prominent retroperitoneal nodes, consistent with the patient's known lymphoma. For reference, a left para-aortic node (series 5, image 122) measures 2.3 x 2.4 cm as compared to 3.0 x 2.9 cm on the previous exam and 3.3 x 3.1 cm on the exam from 10/25/2013. Enlarged retroaortic lymph node measures 2.4 cm in short axis and is unchanged in size (image #142). An aortocaval node (series 5, image 128) measures 1.1 cm in short axis as compared to 1.3 cm on the previous exam. Multiple subcentimeter mesenteric lymph nodes are again noted, not significantly changed along with mild mesenteric fat stranding. Other: There is minimal bibasilar atelectasis. The visualized lung bases are clear. Limited evaluation of the heart and mediastinum is unremarkable. Atherosclerotic calcifications are present in the coronary arteries. The abdominal aorta is normal in course and caliber. The remaining unenhanced abdominal vascular structures are normal. Bone windows demonstrate no suspicious lytic or blastic lesions. Procedure Note Trinity Salazar MD - 09/25/2017 EXAMINATION: Computed tomography (CT) of the abdomen without contrast HISTORY: Lymphoma TECHNIQUE: CT of the abdomen was performed without the administration ofintravenous contrast for radiation treatment planning. COMPARISON: Comparison is made to outside CT of the abdomen pelvis dated02/02/2014 and 10/25/2013. FINDINGS: Abdomen: Evaluation of abdominopelvic organs and vascular structures is limited dueto lack of intravenous contrast. The liver appears normal and limits of a noncontrast examination. A 7 mmgallstone is identified, without gallbladder wall thickening orpericholecystic fluid. The intrahepatic and extrahepatic bile ducts arenondilated. The spleen and adrenal glands appear normal. The pancreas is mildly atrophic. The kidneys appear normalwithout evidence of renal calculi or hydronephrosis. The stomach and visualized small and large bowel are normal in caliberwithout evidence of wall thickening or obstruction. No free air or freefluid is identified within the abdomen. There are several prominent retroperitoneal nodes, consistent with thepatient's known lymphoma. For reference, a left para-aortic node (series5, image 122) measures 2.3 x 2.4 cm as compared to 3.0 x 2.9 cm on theprevious exam and 3.3 x 3.1 cm on the exam from 10/25/2013. Enlarged retroaortic lymph node measures 2.4 cm inshort axis and is unchanged in size (image #142). An aortocaval node(series 5, image 128) measures 1.1 cm in short axis as compared to 1.3 cmon the previous exam. Multiple subcentimeter mesenteric lymph nodes are again noted, not significantlychanged along with mild mesenteric fat stranding. Other: There is minimal bibasilar atelectasis. The visualized lung bases areclear. Limited evaluation of the heart and mediastinum is unremarkable.Atherosclerotic calcifications are present in the coronary arteries. The abdominal aorta is normal in course and caliber. The remainingunenhanced abdominal vascular structures are normal. Bone windows demonstrate no suspicious lytic or blastic lesions. IMPRESSION IMPRESSION: Radiation treatment protocol exam with noncontrast technique.Retroperitoneal adenopathy, largest one measuring 2.2 x 2.4 cm in the leftperiaortic region, slightly decreased in size, consistent with thepatient's known lymphoma. No significant change subcentimeter mesenteric lymphadenopathy andmesenteric fat stranding. This report has been dictated by Jeri Maldonado M.D. (Resident). IDr. Linda M.D. have personally reviewed and interpreted thisexamination/study. This report was electronically signed by Linda SALAZAR M.D. on03/23/2014 12:50 PM . Keagan Oliver MD CT ORDERABLES * CYTOGENETICS CANCER PANEL (08/24/2013 2:46 PM CHART PICKER) Indication for Study Lymphoma 08/29/2013 2:33 PM CHART PICKER [facility] Results Cytogenetics Analysis and count of 20 cells (8 cells karyotyped, GTL-banding) from 24-hour unstimulated and 72-hour Interleukin stimulated bone marrow cultures showed the following chromosome pattern: 46,XY[20] 08/29/2013 2:33 PM CHART PICKER [facility] Interpretation Male chromosome analysis showing 46,XY with no evidence for any clonal structural or numerical abnormality in all cells examined at 400 average band resolution. 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
--- OUTSIDE RECORDS SUMMARY | 2024-09-05 00:59 | XMS_ITS | Referral Summary ---
Author Organization [facility] [address] [facility] Address [address] [facility] [address] [place] [address] Phone Care Team Providers Care Detasseler Name Role Phone Marc Cam MD Primary Care Provider Keagan Oliver MD Unavailable [phone] Keagan Avila DO Unavailable [phone] Allergies Active Allergy Reactions Criticality Noted Date [...] (three) times a day with meals Active [id number]-[id number]- qrb-wrvv-ujok -pec (Fiber 6) 1,000 mg tablet Take [...] Quadrivalent, Spl it, Preservative Free, Intramuscular 06/14/2014 [employer] SARS-CoV-2 Vaccination 12/03/2020 Social History Tobacco Use Types Packs/Day Years [...] on file Legal Sex Male 12:07 AM 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 ONLY Gender Identity Male 11/05/2022 8:53 AM CDT Sexual Orientation Not on file Last Filed [...] 12/10/2023 2:57 PM CDT Plan of Treatment Not on file Insurance [employer] [place] [place] Member Subscriber Plan / Payer [facility] Name:Wild Breaux Relation to Subscriber:Self Name:Wild Breaux Payer ID:[id number] ([facility]) Type:HEALTHCARE/EXCHANGE Address: [place] [address] CHO[employer] [place] Member Subscriber Plan / Payer ([facility]Present) Name:Wild Breaux Relation to Subscriber:Self Name:Wild Breaux Payer ID:[id number] ([place]) Type:HEALTHCARE/EXCHANGE Address: [address] [place] [address] [place] [employer] Care Teams Detasseler Relationship Specialty Start Date End Date Marc Cam MD [address] [place] [address] PCP - General Family Medicine 01/20/18 Keagan Oliver MD [address] [place] [address] Referring Physician Radiation Oncology 01/20/18 Keagan Avila DO [facility], [address] [place] [address] Medical Oncologist/Jewelry Salesperson Hematology and Oncology 03/07/21
[2024-09-05 09:45] VITALS: BP 117/84; PULSE 78; RESP 16; TEMP 36.2; O2SAT 97
[2024-09-05] MEDS: LACTATED RINGERS 1,000 ML 150 ML IV CONT (09:54)
--- NOTE | 2024-09-05 09:57 | P.PNAN_ITS ---
Anes - Initial Pre Proc Eval Procedure: Operation Date: 09/05/24 11:00 Proposed Procedures p Screening Colonoscopy - Jaison Stiles MD Date/Time: 09/05/24 09:57 Surgeon: Jaison Stiles MD Pre Op Diagnosis: screening malignant neoplasm of colon/rectum Patient Data Age: 64 Gender: M Height: 1.88 m Weight: 110.2 kg Last Vital Signs Temp 36.2 C L 09/05/24 09:45 Pulse 78 09/05/24 09:45 Resp 16 09/05/24 09:45 BP 117/84 09/05/24 09:45 Pulse Ox 97 09/05/24 09:45 O2 Del Method Room Air 09/05/24 09:45 Allergies Allergy/AdvReac Type Severity Reaction Status Date / Time No Known Allergies Allergy Verified 09/05/24 09:42 Home Medications ?Medication ?Instructions ?Recorded ?Confirmed ?Type ascorbate calcium (vitamin C) 500 500 mg PO DAILY 08/25/19 09/05/24 History mg tablet calcium polycarbophil 625 mg 1,250 mg PO DAILY 08/25/19 09/05/24 History tablet (Fiber (calcium polycarbophil)) fluticasone propionate 50 2 spray intranasal DAILY 08/25/19 08/30/24 History mcg/actuation nasal spray,suspension multivitamin 1 tablet PO DAILY 08/25/19 09/05/24 History nitroglycerin 0.4 mg sublingual 0.4 mg sublingual Q5M PRN chest 03/23/22 08/30/24 Rx tablet pain #30 tabs lansoprazole 15 mg capsule,delayed 15 mg PO DAILY #90 caps 12/14/23 09/05/24 Rx release (Prevacid 24Hr) citalopram 10 mg tablet See Rx Instructions .Route 03/09/24 09/05/24 Rx .COMPLEX #90 tabs atorvastatin 80 mg tablet See Rx Instructions .Route 04/03/24 09/05/24 Rx .COMPLEX #90 tabs tramadol 50 mg tablet 50 mg PO BID PRN pain #60 tabs 08/07/24 09/05/24 Rx loratadine-pseudoephedrine ER 10 1 tablet PO DAILY PRN allergy 08/30/24 08/30/24 History mg-240 mg tablet,extended symptoms [id number] (Claritin-D 24 Hour) Patient hx anesthesia problems: none Family hx anesthesia problems: none Results Review: All pre-operative results and documents have been reviewed as part of the pre- operative evaluation. [facility] Past Medical History Medical History History of lymphoma Large cell lymphoma Anxiety IFG (impaired fasting glucose) Pure hypercholesterolemia Surgical History Surgical History History of removal of Port-a-Cath Hx of exploratory laparotomy as a child H/O nasal septoplasty Family History Family History Father Esophageal cancer Laryngeal cancer Father Family history of malignant neoplasm of esophagus Social History Social History Smoking status: Never smoker Second hand tobacco smoke exposure: No Alcohol intake: current Alcohol use details: occasionally 2-3 per month Substance use: never Substance use type: does not use Living arrangements: with family Additional living arrangements comments: with sp Occupation/Education: occupation Gender identity (if verbalized by the patient): Male Sexual Orientation (if Verbalized by the Patient): Straight or Heterosexual Anes - Eval Final PreProcedure Day of Procedure 09/05/24 09:57 Patient weight: obese Heart: regular rate and rhythm Lungs: clear to auscultation Airway: Mallampati scale class II Neurological: alert and oriented Last oral intake: >/= 8 hours ASA classification: III Emergent: no Anesthetic plan: proceed Anesthesia type and monitoring: general GIVS and standard monitoring Results Review: All pre-operative results and documents have been reviewed as part of the pre- operative evaluation. Informed Consent: The patient's anesthetic plan and its attendant risks and benefits were discussed with the patient/family/POA. Questions were solicited and answers provided to the satisfaction of the patient/family/POA.
--- NOTE | 2024-09-05 10:28 | PM.HPGS ---
History of Present Illness History of Present Illness Consent: Risks, benefits, and alternatives have been discussed and questions answered. Patient agrees to proceed with procedure. Chief complaint: screening malignant neoplasm of colon/rectum Narrative: Wild Breaux is a 64 year old male with colon polyp 5 years ago Review of Systems Review of Systems: All systems reviewed & are unremarkable except as noted in HPI and below PMFSH Past Medical History Medical History (Updated 09/05/24 @ 10:28 by Jaiosn Stiles MD) Colon polyp History of lymphoma Large cell lymphoma Anxiety IFG (impaired fasting glucose) Pure hypercholesterolemia Surgical History Surgical History History of removal of Port-a-Cath Hx of exploratory laparotomy as a child H/O nasal septoplasty Family History Family History Father Esophageal cancer Laryngeal cancer Father Family history of malignant neoplasm of esophagus Social History Social History Smoking status: Never smoker Second hand tobacco smoke exposure: No Alcohol intake: current Alcohol use details: occasionally 2-3 per month Substance use: never Substance use type: does not use Living arrangements: with family Additional living arrangements comments: with sp Occupation/Education: occupation Gender identity (if verbalized by the patient): Male Sexual Orientation (if Verbalized by the Patient): Straight or Heterosexual Meds Home Medications and Allergies Home Medications ?Medication ?Instructions ?Recorded ?Confirmed ?Type ascorbate calcium (vitamin C) 500 500 mg PO DAILY 08/25/19 09/05/24 History mg tablet calcium polycarbophil 625 mg 1,250 mg PO DAILY 08/25/19 09/05/24 History tablet (Fiber (calcium polycarbophil)) fluticasone propionate 50 2 spray intranasal DAILY 08/25/19 08/30/24 History mcg/actuation nasal spray,suspension multivitamin 1 tablet PO DAILY 08/25/19 09/05/24 History nitroglycerin 0.4 mg sublingual 0.4 mg sublingual Q5M PRN chest 03/23/22 08/30/24 Rx tablet pain #30 tabs lansoprazole 15 mg capsule,delayed 15 mg PO DAILY #90 caps 12/14/23 09/05/24 Rx release (Prevacid 24Hr) citalopram 10 mg tablet See Rx Instructions .Route 03/09/24 09/05/24 Rx .COMPLEX #90 tabs atorvastatin 80 mg tablet See Rx Instructions .Route 04/03/24 09/05/24 Rx .COMPLEX #90 tabs tramadol 50 mg tablet 50 mg PO BID PRN pain #60 tabs 08/07/24 09/05/24 Rx loratadine-pseudoephedrine ER 10 1 tablet PO DAILY PRN allergy 08/30/24 08/30/24 History mg-240 mg tablet,extended symptoms [id number] (Claritin-D 24 Hour) Allergies Allergy/AdvReac Type Severity Reaction Status Date / Time No Known Allergies Allergy Verified 09/05/24 09:42 Vital Signs Vital Signs - 24 hr 09/05/24 09:45 Temperature 97.1 F L Pulse Rate 78 Respiratory Rate 16 Blood Pressure 117/84 Pulse Oximetry 97 Oxygen Delivery Room Air Exam Const: General: comfortable and no acute distress HENMT: Face/Nose/Sinus: Normal nares present Eyes: General: appearance normal, both eyes and all related structures Neck: Neck: no JVD Resp: Auscultation: clear to auscultation bilaterally Cardio: Rate: regular rate Rhythm: regular rhythm GI: Inspection: non-distended GI Palp: Yes Soft to palpation Skin: General skin exam: normal color Neuro: Speech: normal speech Extrem: General: normal to inspection Psych: Mental Status: mental status grossly normal Assessment and Plan Assessment and plan (1) Colon polyp: Code(s): K63.5 - Polyp of colon Status: Acute Assessment and Plan: colonoscopy
[2024-09-05 10:41] VITALS: BP 160/70; PULSE 77; RESP 15; O2SAT 100
[2024-09-05 10:51] VITALS: BP 95/60; PULSE 60; RESP 15; O2SAT 99
[2024-09-05 11:01] VITALS: BP 115/65; PULSE 65; RESP 18; O2SAT 99
== END 2024-09-05 11:08 | disposition home or self-care (01) ==
PROVIDERS: PCP Family Medicine; Referring Provider Family Medicine; Visit Provider Internal Medicine Gastroenterology
PROC: 0DJD8ZZ Inspection of Lower Intestinal Tract, Via Natural or Artificial Opening Endoscopic (ICD-10-PCS; CPT 45378; principal; 2024-09-05 11:00)
DX: Z12.11 Encounter for screening for malignant neoplasm of colon (principal); K63.5 Polyp of colon; K57.30 Diverticulosis of large intestine without perforation or abscess without bleeding; K64.8 Other hemorrhoids; E66.9 Obesity, unspecified; Z68.31 Body mass index [BMI] 31.0-31.9, adult
CPT/HCPCS: 45385; 88305; J2704; J7120